=== PATIENT | male | born 1950 | race Caucasian/White ===

== ENCOUNTER → 2016-12-14 | Outpatient (CLI) | payer OTHER, BC ==
[~2016-12-14] MED LIST: BNC20 PO; CLC100; CMD2 PO; CRS10 PO; OXYC-57 PO; TRIPLE ANTIBIOTIC; WARF2TAB PO; [UNRECOGNIZED DRUG - OTHER]
--- NOTE | 2016-12-14 14:18 | DIAGNOSTIC IMAGING REPORT ---
PELVIS AND BILATERAL HIP RADIOGRAPHS CLINICAL HISTORY: Bilateral hip pain. COMPARISON: Pelvis radiograph June 03, 2015. FINDINGS: The symphysis pubis is intact. Alignment of the total right hip arthroplasty is anatomic. There is mild heterotopic bone formation. There is no periprosthetic fracture or lucency. There is complete loss of the left hip joint space which has progressed since prior exam. Extensive sclerosis and osteophytosis is noted. There is subchondral lucency within the left femoral head. This has developed since prior exam. IMPRESSION: 1. Status post total right hip arthroplasty. Hardware intact with no periprosthetic fracture or lucency. 2. Progression of end-stage arthritis of the left hip since exam of June 03, 2015. Interval development of subchondral lucency within the left femoral head which could be secondary to osteoarthritis or represent avascular necrosis. Electronically signed by: Nato Gutierrez M.D. 12/14/2016 2:17 PM Dictated Date/Time: 12/14/2016 2:15 PM
--- NOTE | 2016-12-14 14:30 | DIAGNOSTIC IMAGING REPORT ---
LEFT KNEE 4 OR MORE CLINICAL HISTORY: LEFT KNEE PAIN pain COMPARISON: None. DISCUSSION: Mild degenerative change medial joint compartment. Moderate degenerative change patellofemoral joint. No significant joint effusion. Mild osteophytic reaction. There is no evidence for soft tissue swelling. IMPRESSION: Mild to moderate degenerative change. No acute process. Electronically signed by: Giorgi Osei M.D. 12/14/2016 2:29 PM Dictated Date/Time: 12/14/2016 2:26 PM
== END | disposition home or self-care (01) ==
LOC: C.RDSM 13:15
PROVIDERS: ATTEND Physician Assistant
DX: M25.562 Pain in left knee (principal); M25.551 Pain in right hip; M25.552 Pain in left hip; Z96.641 Presence of right artificial hip joint; M13.852 Other specified arthritis, left hip

== ENCOUNTER 2017-01-29 04:54 | Inpatient (IN) | payer OTHER, BC ==
[2016-12-31 10:02] VITALS: BMI 28.0
--- NOTE | 2016-12-31 10:37 | PAT Medication Instructions ---
Service Date Dec 31, 2016. Current Home Medication List No Active Prescriptions or Reported Meds Medication Instructions For Your Scheduled Surgery No Active Prescriptions or Reported Meds- Please contact PAT department if any medications started prior to surgery. If you have any questions please call us at [phone] (Iliana Rick PA-C) or [phone] or [phone]
--- NOTE | 2016-12-31 11:34 | DIAGNOSTIC IMAGING REPORT ---
CHEST 2 VIEWS ROUTINE CLINICAL HISTORY: pat preoperative evaluation COMPARISON STUDY: No previous studies for comparison. FINDINGS: The bones soft tissues and hemidiaphragms are normal. The cardiomediastinal silhouette is normal. The lungs are clear. The pulmonary vasculature is normal. IMPRESSION: Negative chest. Electronically signed by: Giorgi Osei M.D. 12/31/2016 11:32 AM Dictated Date/Time: 12/31/2016 11:32 AM
[2016-12-31 11:44] LABS: URINE APPEARANCE CLEAR (CLEAR); URINE BILIRUBIN NEG (NEG); URINE COLOR YELLOW; URINE NITRITE NEG (NEG); URINE SPECIFIC GRAVITY 1.014 (1.000-1.030); UROBILINOGEN NEG (NEG); ZZUR CULT IF INDIC CLEAN CATCH NO
[2016-12-31 11:47] LABS: MANUAL MICROSCOPIC REQUIRED? NO; REVIEW REQ? NO
[2016-12-31 11:48] LABS: BASO % 0.2 %; BASO ABS # 0.01 K/uL (0-0.2); COMPLETE YES; EOS % 1.1 %; LYMPH % 29.3 %; LYMPH ABS # 1.82 K/uL (1.2-3.4); MEAN CELL VOLUME 87.8 fL (80-100); MEAN CORPUSCULAR HEMOGLOBIN 29.6 pg (25-34); MEAN CORPUSCULAR HGB CONC 33.7 g/dl (32-36); MEAN PLATELET VOLUME 10.1 fL (7.4-10.4); MONO % 8.8 %; NEUT % 60.6 %; PLATELET COUNT 249 K/uL (130-400); RED BLOOD COUNT 4.33 M/uL (4.7-6.1); WHITE BLOOD COUNT 6.22 K/uL (4.8-10.8)
[2016-12-31 11:54] LABS: PARTIAL THROMBOPLASTIN RATIO 1.2; PROTHROMBIN TIME (PATIENT) 10.7 SECONDS (9.0-12.0)
[2016-12-31 12:17] LABS: BUN/CREATININE RATIO 18.4 (10-20); CALCIUM 8.9 mg/dl (8.5-10.1); CREATININE 0.88 mg/dl (0.60-1.40); POTASSIUM 4.5 mmol/L (3.5-5.1)
--- NOTE | 2017-01-04 09:49 | HISTORY & PHYSICAL EXAMINATION ---
DATE OF ADMISSION: 01/29/2017 CHIEF COMPLAINT: Left hip pain. HISTORY OF PRESENT ILLNESS: This 66-year-old white male presents to the office with complaints of left hip pain that has been ongoing for several years. It has become worse over the last 4-6 months. He has a history of previous right total hip arthroplasty and has done well with that. He is having difficulty with ambulation and weightbearing activity due to his left hip. It is affecting his ADLs. He feels it is time to proceed with a left total hip. No new trauma. He denies any recent falls. Pain radiates into the thigh. No numbness or tingling. He points to the groin as his area of discomfort. PAST MEDICAL HISTORY: Significant for osteoarthritis and kidney stones. PREVIOUS SURGERIES: Ureteroscopy with stone retrieval and right hip total hip arthroplasty. CURRENT MEDICATIONS: None. ALLERGIES: NKDA. FAMILY HISTORY: Significant for cancer, diabetes, and heart disease. SOCIAL HISTORY: The patient is . No tobacco use. Positive ETOH use of 12 per week. Retired. REVIEW OF SYSTEMS: Significant for above stated conditions, otherwise unremarkable. PHYSICAL EXAMINATION: GENERAL: Well-developed and well-nourished elderly white male in no acute distress. Sitting on a bed. Alert and oriented. SKIN: Warm and dry with good turgor. No rashes or lesions. No ecchymosis or erythema. HEENT: Normocephalic and atraumatic. Eyes PERRLA, EOMI. Nares patent bilaterally without turbinate enlargement. Oropharynx is without erythema or exudate. No lesions noted. Uvula midline. Oral mucosa moist. Fair dentition. Dental caps are noted. HEART: RRR. No MGR. LUNGS: Clear to auscultation bilaterally. No crackles, rhonchi or wheezing. Good air movement. ABDOMEN: Bowel sounds present x4, soft and nontender. No organomegaly. No masses. MUSCULOSKELETAL: Left hip evaluation reveals no obvious asymmetry. No discomfort with palpation over the quadriceps. There is focal pain with palpation over the anterior flexion crease. It extends laterally into the greater trochanter. No pain with palpation over the SI joint. Limited range of motion of the hip secondary to pain. Palpable crepitus with any motion. There is significant cogwheel type activity. External rotation of only 10 degrees and internal rotation around 5 degrees. Hip flexion to around 90 degrees. Ambulates with an antalgic gait. NEUROLOGIC: Cranial nerves II through XII are intact. Gross sensation is intact across the both lower extremities by soft touch. Peripheral pulses are 2+. DATA: Radiographic imaging previously obtained shows end-stage DJD of the left hip. There is avascular necrosis with collapse. Periarticular osteophytes, subchondral sclerosis, and joint space narrowing are all present. IMPRESSION: Left hip end-stage degenerative joint disease. PLAN: Informed written consent was obtained to proceed with left total hip arthroplasty. Postoperative prescriptions for Percocet and Coumadin will be provided at discharge from the hospital. Anticipate discharge to home with outpatient PT. He already has a walker and cane. Preoperative medical clearance has been requested. Preoperative lab work, EKG, and chest x-ray have been ordered.
[~2017-01-29] VITALS: Ht 180.3 cm; Wt 93.1 kg
[2017-01-29] VITALS (10 sets, daily range): BP systolic 119–167; BP diastolic 65–93; PULSE 51–68; TEMP 36.3–36.7; O2SAT 96–100; Ht 180.3 cm; Wt 93.1 kg
[2017-01-29] MEDS ORDERED: CEFAZOLIN 2000 MG/60 ML D5W 60 ML IV SCH (06:00)
[2017-01-29] MEDS ORDERED: LACTATED RINGER'S 1000ML IV SCH (06:00)
[2017-01-29] MEDS ORDERED: LACTATED RINGER'S 1000ML 1,000 ML IV SCH (06:00)
[2017-01-29] MEDS ORDERED: TRANEXAMIC ACID INJ 1,000 MG in SODIUM CHLORIDE 0.9% 100ML 100 ML IV SCH ×2 (06:00→15:00)
[2017-01-29] MEDS ORDERED: VANCOMYCIN INJ 1,400 MG in SODIUM CHLORIDE 0.9% 500ML 500 ML IV SCH ×2 (06:00→18:00)
[2017-01-29] MEDS ORDERED: LACTATED RINGER'S 1000ML 500 ML IV ONE (06:00)
--- NOTE | 2017-01-29 06:24 | History & Physical Bridge Note ---
H&P Re-Evaluation Bridge Note: I have examined the patient, reviewed the History & Physical and in the interval since the performance of the History & Physical I have noted the following changes of clinical significance: No changes noted
[2017-01-29] MEDS ORDERED: POVIDONE-IODINE OP SOLN 30 ML BTL ONE (06:31)
[2017-01-29] MEDS ORDERED: ORTHO JOINT ANESTHETIC ONE (06:31)
[2017-01-29] MEDS ORDERED: BUPIVACAINE 0.5 % 5 MG/1 ML PF 10ML VIAL ONE ×2 (06:42→06:48)
[2017-01-29] MEDS ORDERED: FENTANYL CITRATE INJ 50 MCG/1 ML 2 ML VIAL ONE (06:43)
[2017-01-29] MEDS ORDERED: MIDAZOLAM HCL 1 MG/ML 2ML VIAL ONE (06:43)
[2017-01-29] MEDS ORDERED: PROPOFOL IV EMULSION 10 MG/ML 20 ML VIAL IV ONE ×2 (07:29→08:00)
[2017-01-29] MEDS ORDERED: EpHEDrine SULFATE INJ 50 MG/ML AMP ONE (07:29)
[2017-01-29] MEDS: ROPIVACAINE 5MG/ML 30 ML 150 MG, BUPIVACAINE/EPINEPHR 0.5% MPF 30 ML, KETOROLAC TROMETH... INFIL SCH ×14 (07:32→08:16)
--- NOTE | 2017-01-29 08:21 | [facility] Post Operative Brief Note ---
Immediate Operative Summary Operative Date January 29, 2017. Pre-Operative Diagnosis Left Hip End-Stage Degenerative Joint Disease Post-Operative Diagnosis Left Hip End-Stage Degenerative Joint Disease Procedure(s) Performed Left Total Hip Arthroplasty--Uncemented Surgeon Dr. Atkinson Copy Holder Surgeon(s) Dr. Rufino Ludwig/CHRIS Grewal Estimated Blood Loss 50 ml Findings severe avn/djd Fluids (cc crystalloids) 1200cc Specimens A. Left Femoral Head Drains none Anesthesia spinal Complication(s) None Disposition Recovery Room / PACU
--- NOTE | 2017-01-29 08:41 | OPERATIVE REPORT ---
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 POSTOPERATIVE DIAGNOSIS: Same. OPERATION PERFORMED: Noncemented left total hip replacement. SURGEON: Dr. Atkinson. SECURITY SYSTEM ADMINISTRATOR: Dr. Rufino Ludwig. SECOND ADVENTURE GUIDE: Jignesh Christianson PA-C. SUMMARY OF IMPLANTS: Size 58 acetabular shell sector cup, cancellous bone screw 6.5 x 25, acetabular liner 36 x 58 neutral, 7 high offset femoral stem, 36+5 head. ESTIMATED BLOOD LOSS: 50 mL. CRYSTALLOID: 1200 mL. Deep venous thrombosis prophylaxis per protocol. PERIOPERATIVE SITUATION: A healthy male with intractable hip pain with physical exam, x-ray and MRI scan consistent with severe AVN and DJD of his left hip. Similar procedure done on the opposite side years ago. OPERATION AND FINDINGS: OPERATION: The patient appropriately identified, site verified, consent verified, 2 grams of Ancef confirmed as being given and loading dose of vancomycin given for history of remote MRSA. The patient was placed in the right lateral decubitus position. Left lower extremity prepped and draped in usual routine fashion. Posterior approach to the hip was then made. Sharp dissection carried through skin and blunt dissection down to the fascia. This was then incised. Fascia was then opened. Retractors placed. The short external rotators released. The capsule teed, the hip dislocated. The femoral neck resected. The head was very deformed, significant AVN segment marked degenerative disease, marked osteophytes. Acetabular exposure was then obtained. The remaining labrum which was partially calcified removed, osteophytes resected. Serial reaming carried up to a 58 and 58 cup impacted into appropriate anteversion and inclination with excellent rim fit and then a 6.5 x 25 screw plates with excellent purchase. Trial liner seated. The femur was then flexed and internally rotated, proximal femur prepared with a metal box maker, canal finder, lateralizing rasp, and serial reaming up to a size 7, which fit extremely well. The size 7 trial was then seated with a +5 head. The hip was very stable and nondislocatable in all positions. Trial implants were then removed. The wound irrigated with Betadine, Pulsavac, hole eliminator seated, permanent liner seated, permanent head and neck seated. The hip reduced. It was stable again in all planes. Leg lengths were within millimeters of equality. The wound was then irrigated with Betadine, Pulsavac and then the capsule closed with #2 Vicryl, the short external rotators with the same. The IT band and fascia of the gluteus oliver the same, #2 Vicryl and then the subcutaneous layer with 2-0 plain. After Orthomix was injected into the incision superficial only the wound was closed with 2-0 Vicryl and stainless steel clips. Appropriate dressing applied and the patient transferred to recovery room in satisfactory condition having tolerated the procedure well. SUMMARY OF IMPLANTS: As mentioned above. I attest to the content of the Intraoperative Record and any orders documented therein. Any exceptio ns are noted below.
[2017-01-29] MEDS ORDERED: BISACODYL 10 MG SUPP PR PRN (08:45)
[2017-01-29] MEDS ORDERED: MAGNESIUM HYDROXIDE SUSP 30 ML UDC PO PRN (08:45)
[2017-01-29] MEDS ORDERED: MoRPHine SULFATE 2 MG/ML CARP IV PRN (08:45)
[2017-01-29] MEDS ORDERED: DiphenhydrAMINE HCL 50 MG/ML VIAL IV PRN (08:45)
[2017-01-29] MEDS ORDERED: METOCLOPRAMIDE HCL INJ 5 MG/ML 2 ML VIAL IV PRN (08:45)
[2017-01-29] MEDS ORDERED: TAMSULOSIN HCL 0.4 MG CAP PO PRN (08:45)
[2017-01-29] MEDS ORDERED: ONDANSETRON INJ 2 MG/ML 2 ML VIAL IV PRN (08:45)
[2017-01-29] MEDS ORDERED: ALUMINUM/MAGNESIUM/SIMETH (MAALOX MAX) 30 ML UDC PO PRN (08:45)
--- NOTE | 2017-01-29 09:17 | DIAGNOSTIC IMAGING REPORT ---
PELVIS 1 OR 2 VIEW ROUTINE CLINICAL HISTORY: s/p Left hip YULIYA hip replacement COMPARISON: None. DISCUSSION: Anatomic alignment status post total left hip replacement. Pre-existing total right hip arthroplasty. Expected soft tissue postoperative change IMPRESSION: Anatomic alignment status post total left hip replacement. Electronically signed by: Giorgi Osei M.D. 01/29/2017 9:16 AM Dictated Date/Time: 01/29/2017 9:15 AM
[2017-01-29] MEDS ORDERED: EpHEDrine SULFATE INJ 50 MG/ML AMP IV PRN (09:30)
[2017-01-29] MEDS ORDERED: ATROPINE SULFATE 0.1 MG/ML 5ML SYR IV PRN (09:30)
--- NOTE | 2017-01-29 09:30 | Anesthesiology Progress Note ---
Anesthesia Post Op Note Date & Time January 29, 2017 at 09:31 Vital Signs Pain Intensity: 0 Vital Signs Past 12 Hours Date Time Temp Pulse Resp B/P Pulse Ox O2 Delivery O2 Flow Rate FiO2 01/29/17 09:20 36.4 52 15 111/69 100 Nasal Cannula 2 01/29/17 09:10 54 17 106/69 100 Nasal Cannula 2 01/29/17 09:00 52 17 113/74 100 Nasal Cannula 2 01/29/17 08:50 55 17 113/41 100 Nasal Cannula 2 01/29/17 08:40 57 18 112/59 100 Nasal Cannula 2 01/29/17 08:32 36.0 64 14 101/60 97 Nasal Cannula 2 01/29/17 05:40 36.5 60 20 167/93 99 Room Air Notes Mental Status: alert / awake / arousable, participated in evaluation Pt Amnestic to Procedure: Yes Nausea / Vomiting: adequately controlled Pain: adequately controlled Airway Patency, RR, SpO2: stable & adequate BP & HR: stable & adequate Hydration State: stable & adequate Neuraxial Anesthesia: was administered, sensory block is resolving Anesthetic Complications: no major complications apparent
[2017-01-29] MEDS ORDERED: D5W AND 1/2NSS + 20MEQ KCL 1,000 ML IV SCH (10:15)
[2017-01-29] MEDS: PANTOprazole SOD 40 MG TAB PO SCH (12:08)
[2017-01-29] MEDS: MULTIVITAMIN TAB PO SCH (12:08)
[2017-01-29] MEDS: FERROUS GLUCONATE 324 MG TAB PO SCH ×2 (12:08→18:20)
[2017-01-29] MEDS: DOCUSATE SODIUM 100 MG CAP PO SCH ×2 (12:08→20:41)
[2017-01-29] MEDS: ACETAMINOPHEN IV 1,000 MG in EMPTY BAG 0 ML IV SCH ×2 (12:09→18:44)
[2017-01-29] MEDS: KETOROLAC TROMETHAMINE 15 MG/ML VIAL IV. SCH ×3 (12:09→23:56)
[2017-01-29] MEDS ORDERED: WARF2TAB PO (12:51)
[2017-01-29] MEDS ORDERED: OXYC-57 PO (12:51)
[2017-01-29] MEDS: OXYCODONE HCL IR 5 MG TAB (IMMEDIATE RELEASE) PO PRN (13:06)
--- NOTE | 2017-01-29 13:35 | OPERATIVE REPORT ---
DATE OF OPERATION: 01/29/2017 PREOPERATIVE DIAGNOSIS: Left hip end-stage degenerative joint disease. POSTOPERATIVE DIAGNOSIS: Left hip same. PROCEDURE: Left hip total hip arthroplasty using DePuy implants. SURGEON: Dr. Atkinson. CUSHION ASSEMBLER: Dr. Quispe. SECOND PASSEMENTERIE WORKER: Jignesh Christianson PA-C. HISTORY OF PRESENT ILLNESS: This 66-year-old white male presented to the office with complaints of intractable left hip pain. He had tried conservative care measures including activity modification, oral anti-inflammatories, oral pain medication, and assistive devices without lasting relief. He elected to proceed with surgical intervention in hopes of alleviating his pain. He had a previous right total hip arthroplasty that he has done very well with. He elects to proceed with the same on the left. OPERATION AND FINDINGS: The patient was administered spinal anesthetic and then taken to the operating room where he was given sedation. He was prepped and draped in the usual sterile fashion. Please see Dr. Atkinson's operative report for specifics of the procedure. I was present for the entire case from initial patient positioning through final wound closure. Assistance was provided in patient positioning, tissue retraction, hemostasis, trial implant placement, final implant placement, and final wound closure. The patient was taken to the recovery room in satisfactory condition. I attest to the content of the Intraoperative Record and any orders documented therein. Any exceptio ns are noted below.
--- NOTE | 2017-01-29 13:49 | PROGRESS NOTE ---
DATE: 01/29/2017 DATE: 01/29/2017. SUBJECTIVE: Postop check status post left total hip replacement. At this point in time, he is doing well, sitting up eating, already had breakfast and now eating lunch. Tolerated well. No nausea, vomiting. REVIEW OF SYSTEMS: Reveals no chest pain, shortness of breath, fever, chills, nausea and vomiting, headache. OBJECTIVE: Vital signs are stable. He is afebrile. Neurovascular check femoral sciatic nerve is excellent. Postop x-rays look excellent. ASSESSMENT: Doing well. Continue with care pathway, mobilize, eating well 2 meals. We will Hep-Lock IV. DVT prophylaxis per protocol.
[2017-01-29] MEDS ORDERED: CEFAZOLIN IV 2,000 MG in DEXTROSE 5% 50ML 50 ML IV SCH (15:00)
[2017-01-29] MEDS ORDERED: WARFARIN SOD 5 MG TAB PO SCH (16:00)
[2017-01-30] MEDS: ACETAMINOPHEN IV 1,000 MG in EMPTY BAG 0 ML IV SCH (02:23)
[2017-01-30 03:20] VITALS: BP 121/72; PULSE 74; TEMP 36.7; O2SAT 96
[2017-01-30] MEDS: KETOROLAC TROMETHAMINE 15 MG/ML VIAL IV. SCH (05:46)
--- NOTE | 2017-01-30 07:15 | PROGRESS NOTE ---
DATE: 01/30/2017 Postop day #1 status post left total hip replacement. The patient has done well, has no problems. He is ambulatory. He is voiding. He is eating well. He denies any chest pain, shortness breath, fever, chills, nausea, vomiting or headache. VITAL SIGNS: Stable. LABORATORY WORK: Pending. Femoral sciatic nerve works well, hip moves well. Can weight bear to tolerance. ASSESSMENT: Doing well, we will discharge today. INR pending. Check INR on Saturday; discharge on 4 mg daily if INR is less than 1.5; if INR is greater than 1.5, discharge on 2 mg. Follow up in 2 weeks for staple removal.
--- NOTE | 2017-01-30 07:21 | DISCHARGE SUMMARY ---
Status post left total hip replacement. CHIEF COMPLAINT: Left hip pain. HISTORY OF PRESENT ILLNESS: A 66-year-old male admitted for elective left total hip replacement, has done well. He has no major issues. PAST MEDICAL HISTORY: Remarkable for osteoarthritis and kidney stones. PREVIOUS SURGERIES: Include ureteroscopy with stone removal and right total hip replacement. PREADMISSION MEDICATIONS: None. ALLERGIES: None. FAMILY HISTORY: Remarkable for cancer, diabetes, and heart disease. SOCIAL HISTORY: Reveals he is . No tobacco. Social alcohol. Retired. REVIEW OF SYSTEMS: Noncontributory. PHYSICAL EXAMINATION: Wound clean and dry. Neurovascular check, femoral sciatic nerve normal, hip located, tolerates weight well. IMAGING DATA: Postop x-rays look excellent. ASSESSMENT: Status post left total hip replacement. He is doing well, will discharge today. If INR is less than 1.5, discharge on 4 mg Coumadin, check INR on Saturday. If INR is greater than 1.5, discharge on 2 mg of Coumadin, check INR on Saturday. Follow up in 2 weeks for staple removal.
[2017-01-30] MEDS ORDERED: DEXAMETHASONE INJ 10 MG in SYRINGE 0 ML IV SCH (07:30)
[2017-01-30 07:41] LABS: BASO % 0.1 %; BASO ABS # 0.01 K/uL (0-0.2); COMPLETE YES; EOS % 0.5 %; HEMATOCRIT 32.6 % (42-52); IG% 0.2 %; LYMPH % 18.1 %; LYMPH ABS # 1.65 K/uL (1.2-3.4); MEAN CELL VOLUME 90.1 fL (80-100); MEAN CORPUSCULAR HEMOGLOBIN 30.1 pg (25-34); MEAN CORPUSCULAR HGB CONC 33.4 g/dl (32-36); MEAN PLATELET VOLUME 8.6 fL (7.4-10.4); MONO % 14.4 %; NEUT % 66.7 %; PLATELET COUNT 189 K/uL (130-400); RED BLOOD COUNT 3.62 M/uL (4.7-6.1); WHITE BLOOD COUNT 9.14 K/uL (4.8-10.8)
[2017-01-30 07:42] VITALS: BP 121/73; PULSE 64; TEMP 37.3; O2SAT 96
[2017-01-30 07:48] LABS: INR 1.1 (0.9-1.1); PROTHROMBIN TIME (PATIENT) 11.4 SECONDS (9.0-12.0)
--- NOTE | 2017-01-30 07:55 | Anesthesiology Progress Note ---
Anesthesia Post Op Note Date & Time January 30, 2017 at 07:56 Vital Signs Pain Intensity: 0.0 Vital Signs Past 12 Hours Date Time Temp Pulse Resp B/P Pulse Ox O2 Delivery O2 Flow Rate FiO2 01/30/17 07:42 37.3 64 16 121/73 96 Room Air 01/30/17 03:20 36.7 74 18 121/72 96 Room Air 01/29/17 23:55 Room Air 01/29/17 22:55 36.7 62 16 130/70 98 Room Air Notes Mental Status: alert / awake / arousable, participated in evaluation Pt Amnestic to Procedure: Yes Nausea / Vomiting: adequately controlled Pain: adequately controlled Airway Patency, RR, SpO2: stable & adequate BP & HR: stable & adequate Hydration State: stable & adequate Neuraxial Anesthesia: was administered, sensory block resolved Anesthetic Complications: no major complications apparent
[2017-01-30 08:17] LABS: BUN/CREATININE RATIO 20.4 (10-20); CREATININE 0.84 mg/dl (0.60-1.40)
[2017-01-30 08:21] VITALS: O2SAT 98
[2017-01-30 08:34] LABS: CALCIUM 8.3 mg/dl (8.5-10.1)
[2017-01-30] MEDS: MULTIVITAMIN TAB PO SCH (08:56)
[2017-01-30] MEDS: PANTOprazole SOD 40 MG TAB PO SCH (08:56)
[2017-01-30] MEDS: DOCUSATE SODIUM 100 MG CAP PO SCH (08:56)
[2017-01-30] MEDS: FERROUS GLUCONATE 324 MG TAB PO SCH ×2 (08:56→13:01)
--- NOTE | 2017-01-30 09:14 | Progress Note ---
Orthopedic SOAP Note Subjective Date of Service: January 30, 2017. Post OP Day: 1 Reports: feeling well, pain controlled w PO medications, Denies: SOB, calf pain , chest pain, complaints, light headedness, nausea / vomiting, using CHANGE MANAGEMENT COORDINATOR Objective calves soft nontender, N/V intact, hip located, capillary refill less than 2 sec., dressing C/D/I, incision C/D/I, A&O x3, toes mobile patient doing great very pleased with results and minimal pain I changed dressing, minimal drainage, compressive dressing reapplied Date Time Temp Pulse Resp B/P Pulse Ox O2 Delivery O2 Flow Rate FiO2 01/30/17 08:21 98 Room Air 01/30/17 07:42 37.3 64 16 121/73 96 Room Air 01/30/17 07:40 Room Air 01/30/17 03:20 36.7 74 18 121/72 96 Room Air 01/29/17 23:55 Room Air 01/29/17 22:55 36.7 62 16 130/70 98 Room Air 01/29/17 19:50 36.7 68 16 134/71 96 Room Air 01/29/17 16:15 Room Air 01/29/17 15:13 36.3 65 18 147/81 96 Room Air 01/29/17 14:33 158/82 01/29/17 12:42 66 18 161/91 96 Room Air 01/29/17 11:45 36.4 68 19 134/79 100 Nasal Cannula 2.0 01/29/17 10:47 55 16 137/87 100 Nasal Cannula 2.0 01/29/17 10:18 51 18 142/84 99 Nasal Cannula 2.0 01/29/17 09:45 99 Nasal Cannula 2.0 01/29/17 09:45 Nasal Cannula 2.0 01/29/17 09:45 36.4 53 16 119/65 99 Nasal Cannula 2.0 01/29/17 09:30 51 12 116/71 100 Nasal Cannula 2 01/29/17 09:20 36.4 52 15 111/69 100 Nasal Cannula 2 Laboratory Results 24 Hours: Test 01/30/17 07:30 White Blood Count 9.14 K/uL Red Blood Count 3.62 M/uL Hemoglobin 10.9 g/dL Hematocrit 32.6 % Mean Corpuscular Volume 90.1 fL Mean Corpuscular Hemoglobin 30.1 pg Mean Corpuscular Hemoglobin Concent 33.4 g/dl Platelet Count 189 K/uL Mean Platelet Volume 8.6 fL Neutrophils (%) (Auto) 66.7 % Lymphocytes (%) (Auto) 18.1 % Monocytes (%) (Auto) 14.4 % Eosinophils (%) (Auto) 0.5 % Basophils (%) (Auto) 0.1 % Neutrophils # (Auto) 6.09 K/uL Lymphocytes # (Auto) 1.65 K/uL Monocytes # (Auto) 1.32 K/uL Eosinophils # (Auto) 0.05 K/uL Basophils # (Auto) 0.01 K/uL Prothromb Time International Ratio 1.1 Prothrombin Time 11.4 SECONDS Assessment post op day 1 s/p Left YULIYA Plan continue post op care DVT prophylaxis with Coumadin x 6 weeks, target INR 1.8-2.2, will go home on 4mg , recheck INR Saturday pain meds as ordered strict total hip precautions ice left hip WBAT Left L.E. with walker PT/OT resume diet 2 week follow up at [facility] for staple removal discharge home today with outpatient PT spent notable amount of time with patient and family discussing post op care and answering all questions and concerns, very pleased
[2017-01-30] MEDS ORDERED: WARFARIN SOD 5 MG TAB PO ONE (10:00)
[2017-01-30] MEDS ORDERED: ACETAMINOPHEN 325 MG TAB PO PRN (10:30)
[2017-01-30 12:51] VITALS: BP 128/75; PULSE 77; TEMP 36.8; O2SAT 96
[2017-01-30] MEDS: OXYCODONE HCL IR 5 MG TAB (IMMEDIATE RELEASE) PO PRN (13:05)
--- NOTE | 2017-01-30 13:17 | Discharge Instructions ---
Discharge Instructions Date of Service January 29, 2017. Admission Reason for Admission: Left Hip Degenerative Joint Disease Discharge Discharge Diagnosis / Problem: left hip total hip replacement Discharge Goals Goal(s): Decrease discomfort, Improve function, Increase independence Activity Recommendations Activity Limitations: as noted below Lifting Limitations: gradually increase as tolerated Exercise/Sports Limitations: until after follow-up appointment Shower/Bathe: keep incision dry Driving or Machine Use: No driving until cleared by Dr. Atkinson Weightbearing Status: Left weightbearing (as tolerated) . Instructions / Follow-Up Instructions / Follow-Up New Medicine: * You will likely be taking one or more of these medicines: 1. Percocet - Take, as directed, when you need it, every four to six hours to control your pain. 2. Coumadin - Thins your blood to lessen the chance of forming a blood clot. The dose of this is different for each person and is based on your blood tests that are done twice a week. * The most common side effects of pain medicine and iron are nausea and constipation. If nausea or constipation is too much of a problem or if you have any questions about your new medicines or doses, call [facility] at . We will try to help you manage these issues. VERY IMPORTANT TO READ AND REVIEW" Blood Clots and Blood Thinning Medicine: * You are given Coumadin during the immediate post-operative period to lessen the risk of blood clots forming in your legs and/or lungs. Coumadin is usually given for six weeks after surgery. * The prescription is for 2 mg tablets. At discharge, you should understand your dose and take it all at the same time every day, preferably after dinner. * You need to get your blood checked 1 - 2 times per week for six weeks, or as directed. * If your dose needs to change, we will call you. Do not take your medication on the day of the blood test until we call you. * If you don't hear from us after your blood draws, keep taking the same dose. Pain: * The immediate post-operative period after hip replacement surgery is often quite painful. * You are given a prescription for pain medicine. You should take it, as directed, when you need it, especially before physical therapy and before going to bed. Pain that interferes with sleep is very common and can last several months. * You will likely need pain medicine for the first two to four weeks. It will not stop all of the pain. The pain will lessen and as you feel better, you may change to milder pain medicine such as Tylenol. * The most common side effects of pain medicine are nausea and constipation, so don't take more than you need. Physical Therapy: * Follow the "Hip Precautions Instructions." * In some cases, the social media marketer at the hospital will arrange to have a therapist come to your house for the first couple of weeks to help you learn these skills. * You need to practice on your own or with the help of a family member as needed. * When you learn these skills, most of the therapy can be done on your own. Home Exercise: * You were shown a series of exercises in the hospital. Do these exercises three to four times each day including the exercises you were shown in physical therapy. Walking: * Get up and walk several times each day. For the first four weeks, try not to stand or walk for more than one hour at a time. If you do stand or walk for more than one hour, you will not hurt anything, but your leg will likely swell. * As you feel comfortable, you may change from the walker or crutches to a cane and then to independent walking. SELF CARE INSTRUCTIONS AFTER TOTAL HIP REPLACEMENT Until the incision and soft tissues around your hip have healed, there is a possibility that the hip prosthesis could dislocate. A. Observe the following precautions to prevent dislocation: 1. Don't bend your hip greater than 90 degrees. 2. Avoid crossing your legs or ankles while standing or lying. 3. Sit with your feet placed 6 inches apart. 4. When sitting, keep your knees below your hips. Sit on a firm surface, avoid deep, soft chairs and couches. Use an elevated toilet seat in the bathroom. 5. Don't bend over at the waist. Use a long handled shoehorn and a sock aid to help you put on your shoes and socks. A mathematics lecturer can help you meat pickler objects that are too high or too low to reach. 6. Keep car riding to a minimum for at least one month after surgery. B. Your balance may be shaky for a while. Use crutches or a walker until directed by your doctor. C. Use hand rails when walking on stairs. D. Wear low heeled shoes with non-slip soles. E. Be sure that your floors are free of things that could trip you - throw rugs , electrical cords, small objects. Avoid wet and waxed floors, especially with crutches and canes. F. Try to walk several times a day with rest periods between. G. Continue with all the exercises taught to you in the hospital. Again, make walking a part of your daily routine. VERY IMPORTANT TO READ AND REVIEW A. Take Coumadin, or Lovenox (blood thinning medications) as directed by your doctor. If you are on Coumadin, have a pro-time (blood test) drawn according to your doctor's instructions. This will tell the doctor how well the Coumadin is thinning your blood. B. There are a few signs you need to watch for after you are home. If you notice any of the followin. Increased severe hip pain. Some pain is expected especially when you exercise. 2. Increased swelling in your leg or knee; pain or swelling of the calf muscle in either lower leg. 3. Any fluid drainage from the incision. 4. Shortness of breath or chest pain. TEDs/Elastic Stockings: * The white elastic stockings help limit swelling and prevent blood clots from forming in your legs. The more you wear them, the more they work. * Wear them for six weeks. Prevention of Infection: * Take antibiotics one hour before any dental cleaning, dental work, urological procedure, gastrointestinal procedure or any invasive surgery in order to prevent your new joint from getting infected. * You may get the antibiotics from the doctor performing the procedure or we will call in a prescription to the pharmacy of your choice. Call the office for a prescription at least 2 days prior to your appointment. Things to Watch For: * Drainage from the incision site that occurs more than one week after your surgery. * Severely increased leg pain or swelling. * Increased redness at the incision site. * Fever above 101 degrees Fahrenheit. * Unusual chest pain or shortness of breath. * Unusual pain or burning with urination. Current Hospital Diet Patient's current hospital diet: AHA Diet (Heart Healthy) Discharge Diet Recommended Diet: Regular Diet Procedures Procedures Performed: Left Total Hip Arthroplasty--Uncemented Pending Studies Studies pending at discharge: no Medical Emergencies . Who to Call and When: Medical Emergencies: If at any time you feel your situation is an emergency, please call 911 immediately. . Non-Emergent Contact Non-Emergency issues call your: Primary Care Provider, Surgeon Call Non-Emergent contact if: temperature is above 101, wound has increased drainage, wound has increased redness, wound has increased pain, you have any medication questions . "Provider Documentation" section prepared by Jignesh Christianson PA-C. . VTE Core Measure Inpt VTE Proph given/why not?: Warfarin (Coumadin), JhonnyETerra Treviño, [facility] [place] Drug Monitoring Program Search Results: no issues identified
== END 2017-01-30 13:56 | disposition home or self-care (01) | DRG 470 ==
LOC: ENRESERVTM → ENRESERVDT → C.ACU 04:54 → C.3E 06:22
PROVIDERS: ADMIT Physical Medicine & Rehabilitation Sports Medicine; ATTEND Physical Medicine & Rehabilitation Sports Medicine
PROC: 0SRB0JZ Replacement of Left Hip Joint with Synthetic Substitute, Open Approach (ICD-10-PCS; principal; 2017-01-29 07:00)
DX: M16.12 Unilateral primary osteoarthritis, left hip (principal); M90.552 Osteonecrosis in diseases classified elsewhere, left thigh

== ENCOUNTER → 2017-04-15 | Outpatient (CLI) | payer OTHER, BC ==
[~2017-04-15] MED LIST changes: -BNC20 PO; -CLC100; -CMD2 PO; -CRS10 PO; -TRIPLE ANTIBIOTIC; -[UNRECOGNIZED DRUG - OTHER]
== END | disposition home or self-care (01) ==
LOC: C.RDSM 15:37
PROVIDERS: ATTEND Physical Medicine & Rehabilitation Sports Medicine
DX: M87.052 Idiopathic aseptic necrosis of left femur (principal); Z96.642 Presence of left artificial hip joint

== ENCOUNTER → 2017-10-14 | Outpatient (CLI) | payer OTHER, BC | END | disposition home or self-care (01) | LOC: C.RDSM 14:45 | PROVIDERS: ATTEND Physical Medicine & Rehabilitation Sports Medicine | DX: M87.052 Idiopathic aseptic necrosis of left femur (principal); Z96.642 Presence of left artificial hip joint ==